=== PATIENT | female | born 1970 | race Caucasian/White ===

== ENCOUNTER 2023-12-06 00:41 | Emergency (ER) | payer OTHER ==
[~2023-12-06] VITALS: Ht 172.7 cm; Wt 68.0 kg
[2023-12-06 01:23] VITALS: TEMP 97.8
[2023-12-06] MEDS ORDERED: IV NS 0.9% 1,000 ML BAG IV ONE (01:30)
[2023-12-06] MEDS ORDERED: SUMATRIPTAN SUCCINATE 6 MG/0.5 ML VIAL SQ ONE ×2 (01:30→01:32)
[2023-12-06] MEDS ORDERED: METOCLOPRAMIDE HCL 10 MG/2 ML VIAL IV ONE (01:30)
[2023-12-06] MEDS ORDERED: METOCLOPRAMIDE HCL 10 MG/2 ML VIAL ONE (01:32)
[2023-12-06 02:14] VITALS: BP 115/68; O2SAT 98
== END 2023-12-06 03:09 | disposition left against medical advice (07) ==
LOC: ER 00:47
DX: R51.9 Headache, unspecified (principal); F41.9 Anxiety disorder, unspecified
CPT/HCPCS: 99285; 96374; 70450; 96361; 96372; J3030; J2765; J7030